=== PATIENT | male | born 1990 | race Caucasian/White ===

== ENCOUNTER 2020-07-19 21:15 | Emergency (ER) | payer BC ==
[~2020-07-19] VITALS: Ht 172.7 cm; Wt 68.0 kg
[2020-07-19] MEDS ORDERED: HYDROCODONE/APAP 5/325MG TABLET PO ONE (22:00)
[2020-07-19] MEDS ORDERED: HYDROCODONE/APAP 5/325MG TABLET ONE (22:00)
[2020-07-19] MEDS ORDERED: TDAP [DIPH/PERTUSSIS/TET] 0.5 ML VIAL IM ONE ×2 (22:00)
[2020-07-19] MEDS ORDERED: LIDOCAINE 1% INJ 50 ML MDV IJ ONE (22:25)
--- NOTE | 2020-07-19 23:03 | NUR ---
Patient discharged to home in stable condition. Written and verbal after care instructions given. Patient verbalizes understanding of instruction and RX. Pt ambulated out of [facility]. vss.
[2020-07-20 00:04] VITALS: BP 121/83
== END 2020-07-20 00:28 | disposition home or self-care (01) ==
LOC: ER 21:15
DX: S61.412A Laceration without foreign body of left hand, initial encounter (principal); W27.8XXA Contact with other nonpowered hand tool, initial encounter; Y93.89 Activity, other specified; Y92.89 Other specified places as the place of occurrence of the external cause; Y99.8 Other external cause status
CPT/HCPCS: 12042; 90471; 90715; 99284; J3490

== ENCOUNTER 2020-07-22 10:17 | Emergency (ER) | payer BC ==
[~2020-07-22] VITALS: Ht 172.7 cm; Wt 68.0 kg
[2020-07-22 10:54] VITALS: BP 126/65
[2020-07-22] MEDS: BACI/NEOM/POLY B OINT PKT 1 UDPKT PACKET TP ONE (11:13)
== END 2020-07-22 11:17 | disposition home or self-care (01) ==
LOC: ER 10:23
DX: S61.412D Laceration without foreign body of left hand, subsequent encounter (principal); Z60.2 Problems related to living alone; X58.XXXD Exposure to other specified factors, subsequent encounter

== ENCOUNTER 2020-08-02 09:43 | Emergency (ER) | payer BC ==
[~2020-08-02] VITALS: Ht 172.7 cm; Wt 68.0 kg
[2020-08-02 10:10] VITALS: BP 125/81
--- NOTE | 2020-08-02 10:13 | NUR ---
Patient discharged to home in stable condition. Written and verbal after care instructions given. Patient verbalizes understanding of instruction.
== END 2020-08-02 10:13 | disposition home or self-care (01) ==
LOC: ER 09:46
DX: S61.412D Laceration without foreign body of left hand, subsequent encounter (principal); Z60.2 Problems related to living alone; X58.XXXD Exposure to other specified factors, subsequent encounter